=== PATIENT | male | born 1985 | race Caucasian/White ===

== ENCOUNTER 2017-11-02 17:01 | Emergency (ER) | payer OTHER ==
[~2017-11-02] VITALS: Ht 177.8 cm; Wt 86.2 kg
[~2017-11-02 17:01] MED LIST: ALBUTEROL0.09 MG/A1 INH; AMOXICILLIN875 M1 PO; AMOXIL500 MG PO; BACTRIM DS 8001 TAB PO; CLINDAMYCIN HY300 MG PO; DOXYCYCLINE HY100 M4 PO; DOXYCYCLINE MON50 M2 PO; ESCITALOPRAM OX20 MG PO; GOOD SENSE IBU200 MG PO; HUMIRA PEN40 MG/0.8 SC; IBUPROFEN800 M1 PO; KEFLEX500 MG PO; MEDROL DOSEPAK1 PAC PO; MINOCIN100 MG PO; MINOCYCLINE HC100 M1 PO; MINOCYCLINE HC100 M2 PO; MINOCYCLINE100 MG PO; MOBIC 15MG15 MG PO; MOTRIN800 MG PO; NORCO 5-325 TA1 EACH PO; OFLOXACIN5 M1 OT; PERCOCET 325 MG1 TA2 PO; PERCOCET 5-3251 EACH PO; PREDNISONE10 M2 PO; PREDNISONE10 MG PO; ROBITUSSIN W/CO10 ML PO; TESSALON PERLE100 MG PO; TRAMADOL50 MG PO; VIBRAMYCIN100 MG PO; VICODIN 5-3001 EACH PO; ZOFRAN4 M1 SL
[2017-11-02 17:15] VITALS: BP 147/100
--- NOTE | 2017-11-02 19:25 | ED SKIN/ALLERGY COMPLAINT ---
History of Present Illness General Chief Complaint: General Adult Stated Complaint: SKIN CONDITION FLARE UP PER PT Source: patient Exam Limitations: no limitations Vital Signs & Intake/Output Vital Signs & Intake/Output Vital Signs Date Time Temp Pulse Resp B/P B/P Pulse O2 O2 Flow FiO2 Mean Ox Delivery Rate 11/02 1918 101.4 11/02 1715 97.7 100 16 147/100 98 Room Air ED Intake and Output 11/03 0000 11/02 1200 Intake Total Output Total Balance Patient 190 lb Weight Weight Reported by Patient Measurement Method Allergies Coded Allergies: sulfamethoxazole (From Bactrim) (Severe, SWELLING 03/27/16) trimethoprim (From Bactrim) (Severe, SWELLING 03/27/16) cephalexin (Intermediate, SWOLLEN LIPS AND TONGUE, SORES 03/27/16) Sulfa (Sulfonamide Antibiotics) (ANAPHYLAXIS 11/02/17) Reconcile Medications Amoxicillin 875 MG TABLET 1 TAB PO BID ABSCESS Escitalopram Oxalate 20 MG TABLET 1 TAB PO DAILY MENTAL HEALTH (Reported) Hydrocodone/Acetaminophen ([place] 5-325 Tablet) 5 MG-325 MG TABLET 1-2 TAB PO Q4-6 PRN PRN PAIN Hydrocodone/Acetaminophen ([place] 5-325 Tablet) 5 MG-325 MG TABLET 1-2 TAB PO Q4-6 PRN PRN PAIN Ibuprofen 800 MG TABLET 1 TAB PO Q6PRN PRN pain Ibuprofen 800 MG TABLET 1 TAB PO TID PRN FEVER/PAIN Minocycline HCl 100 MG CAPSULE 1 CAP PO BID ABSCESS Minocycline HCl (Minocin) 100 MG CAPSULE 1 CAP PO BID ABSCESS Minocycline HCl (Minocin) 100 MG CAPSULE 1 CAP PO BID ABSCESS Triage Note: PT ON MEDS FOR HIS SKIN CONDITION. PT STATES HE CAN'T GET INTO HIS DR. FOR SCRIPT FOR PREDNISONE AND THE PAIN IS GETTING WORSE. PT STATES HE NEEDS TO WORK SO REQUESTING SCRIPT. PT WITH ABCESS TO BACK UNDER RIGHT ARM AND NECK Triage Nurses Notes Reviewed? yes Onset: Gradual Duration: week(s): Timing: recent history Severity: moderate HPI: 32-year-old male with history of abscesses presents to emergency department complaining of abscesses to neck and low back for the past week. Patient also reports feeling fevers, chills, body aches. Past few days with diarrhea. Patient states that his father is sick with similar symptoms and is wondering if he caught something from him. He has not taken any medication today for the fever. (Erin Conde) Past History Travel History Traveled to [place] past 21 day No Medical History Any Pertinent Medical History? see below for history Neurological: NONE EENT: NONE Cardiovascular: NONE Respiratory: NONE Gastrointestinal: NONE Hepatic: NONE Renal: NONE Musculoskeletal: hydranenitis suppurativa Psychiatric: NONE Endocrine: NONE Blood Disorders: NONE Cancer(s): NONE ROOFER APPLICATOR/Reproductive: NONE History of MRSA: No History of VRE: No History of CDIFF: No Surgical History Surgical History: SKIN GRAFT Psychosocial History Who do you live with Family Services at Home None What is your primary language Uruguayan Tobacco Use: Current Daily Use Daily Tobacco Use Amount/Type: => 5 Cigarettes daily ETOH Use: occasional use Illicit Drug Use: denies illicit drug use Family History Family History, If Any: SISTER Abscess of skin and subcutaneous tissue Hx Contributory? No (Erin Conde) Review of Systems Review of Systems Constitutional: Reports: see HPI. EENTM: Reports: no symptoms. Respiratory: Reports: no symptoms. Cardiovascular: Reports: no symptoms. GI: Reports: see HPI. Genitourinary: Reports: no symptoms. Musculoskeletal: Reports: see HPI. Skin: Reports: see HPI. Neurological/Psychological: Reports: no symptoms. Hematologic/Endocrine: Reports: no symptoms. Immunologic/Allergic: Reports: no symptoms. All Other Systems: Reviewed and Negative (Erin Conde) Physical Exam Physical Exam General Appearance: well developed/nourished, no apparent distress, alert, awake Head: atraumatic, normal appearance Eyes: Bilateral: normal appearance. Ears, Nose, Throat: hearing grossly normal Neck: erythema, swelling, induration, warmth, and tenderness to left posterior neck Respiratory: normal breath sounds, no respiratory distress, lungs clear Cardiovascular: tachycardia Gastrointestinal: normal bowel sounds, soft, non-tender, no organomegaly Back: 3x3cm area of erythema with tenderness and central fluctuance to lower back Extremities: normal inspection, normal range of motion Neurologic/Psych: awake, alert, oriented x 3 Skin: see erythema as described above (Erin Conde) Progress Differential Diagnosis: abscess/cellulitis, allergic reaction, contact dermatitis, erythema multiforme, urticaria Plan of Care: Microbiology 11/03 1923 HEAD/NECK: Head/Neck Culture - CAN Cancelled: SPECIMEN NEVER RECEIVED. PATIENT DEPARTED ER 11/03 1923 HEAD/NECK: Gram Stain - CAN Cancelled: SPECIMEN NEVER RECEIVED. PATIENT DEPARTED [facility] Patient is febrile and tachycardic. 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 I informed the patient that his vital signs last I recommended however he declines. I also informed the patient that abscesses will likely not improve with incision and drainage. He states he will return for I&D as soon as possible. Patient understands that he is signing out AGAINST MEDICAL ADVICE without completion of medical workup. He understands the risks include worsening infection. Patient given prescription of antibiotic for abscesses and states he will return for I&D or worsening symptoms. (Calista DALEY,Erin Paul) Departure Departure Disposition: LEFT AGAINST MEDICAL ADVICE Condition: Stable Clinical Impression Primary Impression: Abscess Referrals: Srikanth Schultz APRN (PCP/Family) Additional Instructions: You are signed out against medical advice. Return as soon as possible for drainage of abscess. Apply warm compress. Began to vaccinate. Take ibuprofen for fevers and body aches. Please note that there might be incidental findings in your evaluation that are unrelated to the current emergency department visit. Please notify your primary care doctor about this emergency department visit in order to obtain and review all of the testing performed so that these incidental findings can be monitored as needed. If you had an x-ray performed, please understand that some fractures may not be seen on the initial set of x-rays. If your symptoms persist you might need a repeat set of x-rays to check for such a fracture. If you had a laceration evaluated, please understand that foreign bodies such as glass or wood may not be visible to the naked eye or on plain x-rays. If the wound becomes red, swollen, increasingly more painful or if there is any drainage from the wound, please have it reevaluated by a physician for the possibility of a retained foreign body. If you're unable to follow up as outlined in the discharge instructions please return to the emergency department. Thank you for choosing the [facility] Emergency Department for your care. It was a pleasure to serve you today. Departure Forms: Customer Survey General Discharge Information Prescriptions: Current Visit Scripts Minocycline HCl (Minocin) 1 CAP PO BID #20 CAP Ibuprofen 1 TAB PO TID PRN FEVER/PAIN #30 TAB (Calista DALEY,Erin Paul) PA/BOMB TECHNICIAN Co-Sign Statement Statement: ED Attending supervision documentation- [] I saw and evaluated the patient. I have also reviewed all the pertinent lab results and diagnostic results. I agree with the findings and the plan of care as documented in the PA's/BOMB TECHNICIAN's documentation. []x I have reviewed the ED Record and agree with the PA's/BOMB TECHNICIAN's documentation. [] Additions or exceptions (if any) to the PAs/BOMB TECHNICIAN's note and plan are summarized below: [] (Lauren VALADEZ,Ramiro Terry)
[2017-11-02] MEDS ORDERED: MINOCIN100 MG PO (19:29)
[2017-11-02] MEDS ORDERED: IBUPROFEN800 M1 PO (19:29)
[2017-11-04] MEDS ORDERED: NORCO 5-325 TA1 EACH PO (16:00)
== END 2017-11-02 19:51 | disposition left against medical advice (07) ==
LOC: ERH 17:01
DX: L02.212 Cutaneous abscess of back [any part, except buttock and flank] (principal); F17.210 Nicotine dependence, cigarettes, uncomplicated
CPT/HCPCS: 87070